=== PATIENT | female | born 1945 | race Caucasian/White ===

== ENCOUNTER 2022-10-09 19:27 | Emergency (ER) | payer MEDICARE, MEDICAID | END 2022-10-09 20:37 | disposition home or self-care (01) | LOC: JD.ED 19:27 | DX: S91.211A Laceration without foreign body of right great toe with damage to nail, initial encounter (principal); Z79.01 Long term (current) use of anticoagulants; Z88.8 Allergy status to other drugs, medicaments and biological substances; Z91.048 Other nonmedicinal substance allergy status; W22.09XA Striking against other stationary object, initial encounter | CPT/HCPCS: 11730; 99282 ==

== ENCOUNTER 2023-05-19 22:15 | Emergency (ER) | payer MEDICARE, MEDICAID | END 2023-05-20 00:40 | disposition home or self-care (01) | LOC: JD.ED 22:15 | DX: M25.074 Hemarthrosis, right foot (principal); I10 Essential (primary) hypertension; E11.9 Type 2 diabetes mellitus without complications; Z79.01 Long term (current) use of anticoagulants; Z88.8 Allergy status to other drugs, medicaments and biological substances; Z91.048 Other nonmedicinal substance allergy status | CPT/HCPCS: 12001; 99283 ==

== ENCOUNTER 2024-09-01 16:09 | Emergency (ER) | payer MEDICARE, MEDICAID ==
[2024-09-01] MEDS: Diphtheria,Pertussis(Acell),Tetanus Vaccine 0.5 ML Syringe IM ONE (17:24)
== END 2024-09-01 17:30 | disposition home or self-care (01) ==
LOC: JD.ED 16:09
DX: S51.811A Laceration without foreign body of right forearm, initial encounter (principal); I10 Essential (primary) hypertension; I48.91 Unspecified atrial fibrillation; E11.9 Type 2 diabetes mellitus without complications; Z23 Encounter for immunization; Z79.01 Long term (current) use of anticoagulants; Z88.8 Allergy status to other drugs, medicaments and biological substances; Z91.048 Other nonmedicinal substance allergy status; W54.1XXA Struck by dog, initial encounter
CPT/HCPCS: 90471; 90715; 99283; 99283-25